=== PATIENT | female | born 1995 | race Asian ===

== ENCOUNTER 2017-01-29 02:33 | Emergency (ER) | payer MEDICAID, MEDICARE ==
--- NOTE | 2017-01-29 03:02 | ED Physician Chart ---
ED Chief Complaint/HPI - Patient Information Date Seen:: 01/29/17 Time Seen:: 02:50 Chief Complaint:: "alcohol poisoning" History of Present Illness:: Patient was dropped off in the emergency department by a friend. She walked in complaining of alcohol poisoning. She states she drank vodka tonight. Allergies:: Allergies Allergy/AdvReac Type Severity Reaction Status Date / Time No Known Allergies Allergy Verified 01/29/17 02:49 Historian:: Patient Review:: Nurse's Note Reviewed ED Review of Systems - Review of Systems General/Constitutional: No fever, No chills Skin: No skin lesions Head: No headache Eyes: No loss of vision ENT: No earache Neck: No neck pain Cardio Vascular: No chest pain, No palpitations Pulmonary: No SOB GI: No nausea, No vomiting, No diarrhea G/U: No dysuria Musculoskeletal: No bone or joint pain, No back pain, No muscle pain Endocrine: No polyuria Psychiatric: No prior psych history, No depression Hematopoietic: No bruising Allergic/Immuno: No urticaria Neurological: No syncope, No focal symptoms ED Past Medical History - Past Medical History Past Medical History: No significant medical hx Family History: None Social History: Non Smoker, No Alcohol Surgical History: other (release of torticollis) Psychiatricy History: None Medication: Reviewed ED Physical Exam - Physical Examination General/Constitutional: Awake, Well-developed, well-nourished, Alert, No distress Other Gen/Cons comments:: Episodes of shaking of her head and slight shaking of her upper extremities; between these episodes patient is normally alert and speaks normally. Head: Atraumatic Eyes: Lids, conjuctiva normal, PERRL Skin: Nl inspection, No rash, No skin lesions, No ecchymosis ENMT: External ears, nose nl, TM canals nl, Nasal exam nl, Lips, teeth, gums nl , Oropharynx nl, Tonsils nl Neck: No nuchal rigidity Respiratory: Nl effort/Exclusion, Clear to Auscultation Cardio Vascular: RRR GI: No tenderness/rebounding/guarding : No CVA tenderness Extremities: No tenderness or effusion Neuro/Psych: Alert/oriented, No focal deficits Misc: Normal back ED Labs/Radiology/EKG Results - Lab Results Results: Laboratory Results - last 24 hr 01/29/17 01/29/17 02:50 02:50 WBC 10.9 H RBC 5.00 Hgb 15.6 Hct 45.0 MCV 90.0 MCH 31.2 H MCHC Differential 34.6 RDW 11.1 L Plt Count 266 MPV 7.8 Neutrophils % 57.1 Lymphocytes % 32.5 Monocytes % 8.8 Eosinophils % 1.3 Basophils % 0.3 Sodium 134 L Potassium 2.9 L* Chloride 101 Carbon Dioxide 21.3 Anion Gap 14.6 BUN 7 Creatinine 0.7 Est GFR ( Amer) > 60.0 Est GFR (Non-Af Amer) > 60.0 BUN/Creatinine Ratio 10.0 Glucose 137 H Calcium 10.0 Magnesium 2.0 Creatine Kinase 60 Ethyl Alcohol < 10 ED Assessment - Assessment General Assessment: will discharge patient when she ambulates normally. ED Septic Shock - . Is Septic Shock (SBP<90, OR Lactate>4 mmol\\L) present?: No ED Reassessment (Disposition) - Reassessment Reassessment Condition:: Improved - Diagnosis Diagnosis:: anxiety; hypokalemia - Aftercare/Follow up Instructions Aftercare/Follow-Up Instructions:: Refer to Discharge Instructions - Patient Disposition Discharge/Transfer:: Home Condition at Disposition:: Stable, Improved
[2017-01-29] MEDS: Sodium Chloride 0.9% 1,000 ML IV ONE (03:03)
[2017-01-29 03:15] LABS: % BASOPHILS 0.3 % (0.0-2.0); % EOSINOPHILS 1.3 % (0.0-5.0); % LYMPHOCYTES 32.5 % (20.0-50.0); % MONOCYTES 8.8 % (2.0-10.0); % NEUTROPHILS 57.1 % (40.0-80.0); HEMOGLOBIN 15.6 gm/dL (12-16); MEAN CORPUSCULAR HEMOGLOBIN 31.2 pg (27.0-31.0); MEAN CORPUSCULAR HGB CONC 34.6 pg (28.0-36.0); MEAN PLATELET VOLUME 7.8 fl; NEUTROPHILE ABSOLUTE 6.3 Th/cmm (1.8-8.0); PLATELET COUNT 266 Th/cmm (150-400); RED CELL DISTRIBUTION WIDTH 11.1 % (11.5-20.0); WHITE BLOOD COUNT 10.9 Th/cmm (4.8-10.8)
[2017-01-29 03:28] LABS: ANION GAP 14.6 (7.0-16.0); BUN - UREA NITROGEN 7 mg/dL (7-25); CARBON DIOXIDE 21.3 mEq/L (21.0-31.0); CHLORIDE 101 mEq/L (98-107); CREATININE - SERUM 0.7 mg/dL (0.6-1.2); GLUCOSE 137 mg/dL (70-105); SODIUM SERUM 134 mEq/L (136-145)
[2017-01-29 03:32] LABS: POTASSIUM SERUM 2.9 mEq/L (3.5-5.1)
[2017-01-29] MEDS ORDERED: Potassium Chloride 20 mEq ER Tab PO ONE (03:56)
[2017-01-29] MEDS: Potassium Chloride 20 mEq ER Tab PO ONE (03:58)
== END 2017-01-29 06:35 | disposition home or self-care (01) ==
LOC: ER 02:33
DX: F41.9 Anxiety disorder, unspecified (principal); E87.6 Hypokalemia
CPT/HCPCS: 36415-UA; 80048-TC; 80320-TC; 82550-TC; 83735-TC; 85025-TC; J7030; Z7502